=== PATIENT | male | born 1980 | race Caucasian/White ===

== ENCOUNTER 2016-05-31 06:56 | Emergency (ER) | payer SELFPAY ==
[2016-05-31 07:36] VITALS: BP 117/77; TEMP 98.2; O2SAT 96
--- NOTE | 2016-05-31 07:47 | RAD ---
EXAM: Two view(s) of the left foot. INDICATION: Pain. COMPARISON: None. FINDINGS: No acute fracture or dislocation. No large soft tissue swelling. IMPRESSION: 1. No acute fracture. Electronically signed by: Wilder Kerns MD 05/31/2016 7:46 AM LOCOMOTIVE SUPERVISOR
--- NOTE | 2016-05-31 08:09 | ED.PDOC ---
History of Present Illness - General Chief Complaint: Lower Extremity Injury Stated Complaint: Pipe rolled on L foot. Pain on the bridge of the f Time Seen by Provider: 05/31/16 08:06 Source: patient, RN notes reviewed, Vital Signs reviewed Exam Limitations: no limitations Additional Information: Pt states a pipe rolled over the dorsal aspect of his left midfoot yesterday. He is able to bear weight but his gait is antalgic. He has full sensation in his foot, he is able to move his toes and there is no gross deformity noted. Pulses are intact and foot is warm. - History of Present Illness Occurred: yesterday Pain - Lower Extremity: moderate: Left Foot Method of Injury: direct blow Improving Factors: nothing Worsening Factors: movement Associated Symptoms: denies. Allergies/Adverse Reactions: Allergies NO KNOWN ALLERGY Allergy (Verified 05/31/16 07:29) Home Medications: Ambulatory Orders NK [NK] 05/31/16 Review of Systems - Review of Systems Review of Systems: 05/31/16 08:09 Constitutional: States: no symptoms reported EENTM: States: no symptoms reported Respiratory: States: no symptoms reported Cardiology: States: no symptoms reported Gastrointestinal/Abdominal: States: no symptoms reported Genitourinary: States: no symptoms reported Musculoskeletal: States: see HPI Skin: States: no symptoms reported Neurological: States: no symptoms reported Endocrine: States: no symptoms reported Hematologic/Lymphatic: States: no symptoms reported Past Medical History (General) - Patient Medical History Hx Stroke: No Hx Cardiac Disorders: No Hx Congestive Heart Failure: No Hx Diabetes: No Hx Cancer: No Hx Hepatitis C: No Surgical History: noncontributory - Vaccination History Hx Tetanus, Diphtheria Vaccination: No Hx Influenza Vaccination: No Hx Pneumococcal Vaccination: No Immunizations Up to Date: No - Social History Hx Tobacco Use: Yes Hx Chewing Tobacco Use: Yes Hx Alcohol Use: No Hx Substance Use: No Hx Substance Use Treatment: No Hx Depression: No Feels Threatened In Home Enviroment: No Feels Threatened In a Relationship: No Hx Physical Abuse: No Hx Emotional Abuse: No Hx Suspected Abuse: No - Female History Patient is a Female of Child Bearing Age (10 -59 yrs old): Yes Patient : Yes Family Medical History - Family History Grandparents Family History: Unknown Physical Exam - Physical Exam General Appearance: Alert, Comfortable - at rest, No apparent distress - at rest , Well Developed, Well Nourished Eyes, Ears, Nose, Throat: PERRL/EOMI, normal ENT inspection, pharynx normal Neck: non-tender, full range of motion, supple Cardiovascular/Respiratory: regular rate, rhythm, normal peripheral pulses, no respiratory distress Gastrointestinal/Abdominal: non-tender Back: normal inspection Thigh/Hip: normal ROM Leg: normal inspection, non-tender, normal ROM Knee: normal inspection, no evidence of injury, normal ROM Ankle: normal inspection, no evidence of injury, normal ROM Foot: normal inspection, no evidence of injury, normal ROM, soft tissue tenderness - at dorsum of midfoot Neuro/Tendon: normal sensation, normal motor functions, responds to pain Mental Status: alert, oriented x 3 Skin: normal color Progress - Progress Progress: 05/31/16 08:10 X-ray ordered - no obvious fracture. Will treat with relative rest, ice, elevation, and NSAIDs. No work for 2 days. Follow-up if condition worsens. - EKG/XRAY/CT XRAY: left foot - no fracture noted Departure - Departure Clinical Impression: Contusion of left foot Qualifiers: Encounter type: initial encounter Qualifier Code: ([id number]) Contusion of left foot, initial encounter Time of Disposition: 08:20 Disposition: Discharge to Home or Self Care Condition: Fair Departure Forms: ED Discharge - Pt. Copy, Patient Portal Self Enrollment Instructions: Contusion Home Medications: Ambulatory Orders NK [NK] 05/31/16 Additional Instructions: Use crutches as needed to limit weight bearing. Ice and elevation ad jasper. Use over the counter ibuprofen three times a day as needed for pain (follow label instructions). No work for 2 days. Return to ER if condition worsens.
== END 2016-05-31 08:40 | disposition home or self-care (01) ==
LOC: ER 06:56
DX: S90.32XA Contusion of left foot, initial encounter (principal); Z87.891 Personal history of nicotine dependence; W23.0XXA Caught, crushed, jammed, or pinched between moving objects, initial encounter